=== PATIENT | male | born 1975 | race Caucasian/White ===

== ENCOUNTER 2021-08-03 02:06 | Inpatient (IN) | payer SELFPAY ==
[~2021-08-03] VITALS: Ht 185.4 cm; Wt 164.3 kg
--- NOTE | 2021-08-03 02:22 | PHYS DOC ---
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 Denies sudden back pain or abdominal pain. Baseline requires O2 at home however states that he ran out of O2 and albuterol several months ago and has not filled the prescriptions because he was planning to move out of [place] in September. Denies chest pain, palpitations, diaphoresis. No f/c/cough. Review of Systems: Review of Systems: Constitutional: Denies fever or chills. [] Eyes: Denies change in visual acuity. [] HENT: Denies nasal congestion or sore throat. [] Respiratory: Denies cough; + shortness of breath. [] Cardiovascular: Denies chest pain or edema. [] GI: Denies abdominal pain, nausea, vomiting, bloody stools or diarrhea. [] : Denies dysuria. [] Musculoskeletal: Denies back pain or joint pain. [] Integument: Denies rash. [] Neurologic: Denies headache, focal weakness or sensory changes. [] Endocrine: Denies polyuria or polydipsia. [] Lymphatic: Denies swollen glands. [] Psychiatric: Denies depression or anxiety. [] Heart Score: C/O Chest Pain: No Risk Factors: Risk Factors: DM, Current or recent (<one month) smoker, HTN, HLP, family history of CAD, obesity. Risk Scores: Score 0 - 3: 2.5% MACE over next 6 weeks - Discharge Home Score 4 - 6: 20.3% MACE over next 6 weeks - Admit for Clinical Observation Score 7 - 10: 72.7% MACE over next 6 weeks - Early Invasive Strategies Allergies: Allergies: Allergies Coded Allergies Type Severity Reaction Last Updated Verified No Known Drug Allergies 08/03/21 No Physical Exam: PE: Constitutional: Well developed, well nourished, no acute distress, non-toxic appearance. [] HENT: Normocephalic, atraumatic, bilateral external ears normal, oropharynx moist, no oral exudates, nose normal. [] Eyes: PERRLA, EOMI, conjunctiva normal, no discharge. [] Neck: Normal range of motion, no tenderness, supple, no stridor. [] Cardiovascular:Heart rate regular rhythm, no murmur [] Lungs & Thorax: +mild expiratory wheeze, no kermit crackles or ronchi Abdomen: Bowel sounds normal, soft, no tenderness, no masses, no pulsatile masses. [] Skin: Warm, dry, no erythema, +chronic erythematous diffuse rash. [] Back: No tenderness, no CVA tenderness. [] Extremities: No tenderness, no cyanosis, no clubbing, ROM intact, no edema. [] Neurologic: Alert and oriented X 3, normal motor function, normal sensory function, no focal deficits noted. [] Psychologic: Affect normal, judgement normal, mood normal. [] EKG: EKG: [] Radiology/Procedures: Radiology/Procedures: [] Course & Med Decision Making: Course & Med Decision Making Pertinent Labs and Imaging studies reviewed. (See chart for details) Additional Social History: PMD from non-affiliated facility. Patient Lives at home. Family History: Non-pertinent to today's complaint. Nursing Notes Reviewed Previous Medical Records requested via [facility] Web: Reviewed by me. EMERGENT LABS AND DIAGNOSTIC STUDIES: Results were reviewed and interpreted by me as below CBC: Shows no evidence of leukocytosis or anemia. Platelet count is normal Chemistry: Shows no electrolyte abnormalities Otherwise within normal limits, unremarkable or as noted above. 12-lead EKG Interpretation by Torsten Felix MD: Normal Sinus Rhythm at 90 beats per minute Normal axis Normal intervals No ectopy No PVC No other acute ST or T wave abnormalities Overall impression is normal EKG PROCEDURE: PORTABLE CHEST 1V Impression: Cardiomegaly. EMERGENCY DEPARTMENT COURSE/ MEDICAL DECISION MAKING: The patient was placed on a registered nurse cardiac, continuous pulse oximetry and was given supplemental oxygen. I examined the patient, evaluated and addressed patient's chief complaint. The patient was treated with DuoNeb, oxygen suspicious for CHF and COPD exac. Patient states he ran out of his O2 tank and albuterol months ago and never refilled them because he was planning to move out of [place] in September. r/o acs, pneumonia, pneumothorax. Lower suspicion for acute PE or dissection. After evaluation, I believe the patient is at risk for decompensation and will require admission. However, patients abnormal vital signs/labs are not consistent with sepsis, and the patient does not meet the criteria for sepsis at this time. I discussed the patient's case with Dr. Butler, who expressed understanding and agreed to admit the patient. I suspect the patient will be hospitalized for at least 2 midnights. DIAGNOSTIC IMPRESSION: 1. COPD exac 2. CHF exac DISPOSITION: Disposition: Admit to [facility] under the service of Dr. Butler Condition: Guarded Dragon Disclaimer: Dragon Disclaimer: This electronic medical record was generated, in whole or in part, using a voice recognition dictation system. Departure Departure Impression: Primary Impression: CHF exacerbation Additional Impressions: COPD exacerbation SOB (shortness of breath) Disposition: ADMITTED INPATIENT Condition: ISA CHAVEZ MD August 03, 2021 02:22
[2021-08-03 02:37] LABS: BARBITURATES NEG (NEG); BENZODIAZEPINES NEG (NEG); CANNABINOIDS NEG (NEG); COCAINE NEG (NEG); METHADONE NEG (NEG); OPIATES NEG (NEG); PHENCYCLIDINE NEG (NEG)
[2021-08-03 02:38] LABS: BACTERIA,URINE 0 /HPF (0-FEW); WBC,URINE OCC /HPF (0-4)
[2021-08-03 02:39] LABS: AMPHETAMINE/METHAMPHETAMINE NEG (NEG); HYALINE CASTS, URINE FEW /HPF
--- NOTE | 2021-08-03 02:43 | RAD ---
XR CHEST 1V Clinical History: Reason: sob / Spl. Instructions: / History: Technique: AP view of the chest was obtained at 08/03/2021 2:12 AM. Comparison: None. Findings: The heart is moderately enlarged. The pelvic vessels are top normal limits in size. There is an endog raft in the aorta. Impression: Cardiomegaly. Electronically signed by: Pablo Jorgensen III, MD (08/03/2021 2:41 AM) [facility]
[2021-08-03 02:52] LABS: BASO # 0.1 x10^3/uL (0.0-0.2); BASO % 1 % (0-3); EOS # 0.3 x10^3/uL (0.0-0.7); EOS % 3 % (0-3); HEMATOCRIT 52.1 % (39.0-53.0); HEMOGLOBIN 17.2 g/dL (13.0-17.5); LYMPH % 17 % (24-48); MEAN CORPUSCULAR HEMOGLOBIN 31 pg (25-35); MEAN CORPUSCULAR HGB CONC 33 g/dL (31-37); MEAN CORPUSCULAR VOLUME 95 fL (79-100); MONO # 0.9 x10^3/uL (0.0-1.1); MONO % 8 % (0-9); NEUT # 8.1 x10^3/uL (1.8-7.7); NEUT % 71 % (31-73); PLATELET COUNT 184 x10^3/uL (140-400); RED BLOOD COUNT 5.49 x10^6/uL (4.30-5.70); RED CELL DISTRIBUTION WIDTH 17.2 % (11.5-14.5); WHITE BLOOD COUNT 11.4 x10^3/uL (4.0-11.0)
[2021-08-03 03:13] LABS: CALCIUM 8.6 mg/dL (8.5-10.1); CREATININE 1.4 mg/dL (0.7-1.3); GFR 54.6; POTASSIUM 4.1 mmol/L (3.5-5.1)
[2021-08-03 03:17] LABS: PROTHROMBIN TIME PATIENT 12.7 SEC (11.7-14.0)
[2021-08-03 03:18] LABS: ALBUMIN 3.1 g/dL (3.4-5.0); ALBUMIN/GLOBULIN RATIO 0.9 (1.0-1.7); TOTAL BILIRUBIN 0.5 mg/dL (0.2-1.0); TOTAL PROTEIN 6.6 g/dL (6.4-8.2)
[2021-08-03] MEDS ORDERED: IPRATRPIUM/ALBUTEROL 0.5/2.5MG 3 ML NEBU. NEB ONE (03:30)
[2021-08-03] MEDS ORDERED: methylPREDNISolone SOD SUCC PF 125 MG/2 ML VIAL. IV ONE (03:30)
--- NOTE | 2021-08-03 03:47 | EKG ---
[facility] [address] [place] [address] Test Date: 2021-08-03 Test Time: 02:17:14 Pat Name: JOSEPHINE ANNE Department: Room: Gender: M Folder Tier: : 1975 Requested By: ISA RJOAS Order Number: [id number] Reading MD: Luigi Engel MD Measurements Intervals [place] Rate: 90 P: 38 ME: 158 QRS: -8 QRSD: 84 T: 62 QT: 360 QTc: 444 Interpretive Statements SINUS RHYTHM Electronically Signed On 08-03-2021 8:58:14 CDT by Luigi Engel MD
[2021-08-03 04:19] LABS: % BANDS 8 % (0-9); % EOS 4 % (0-5); % LYMPHS 10 % (24-48); % METAS 1 % (0-0); % MONOS 5 % (0-10); % SEGS 72 % (35-66); PLT ESTIMATE ADEQUATE (ADEQUATE)
[2021-08-03 04:20] LABS: ANISOCYTOSIS SLIGHT
[2021-08-03 04:30] VITALS: BP 139/72
[2021-08-03] MEDS ORDERED: xanax (04:55)
[2021-08-03] MEDS ORDERED: lexapro (04:55)
--- NOTE | 2021-08-03 05:13 | NUR ---
Admission Note: Pt admitted to room 664 from ED. Able to stand and walk a few steps to beds from ed cart. Pt on 3L NC. Poor historian, doesnt know all meds that he takes at home. Has been short of breath for a few days, heavy smoker. Denies using O2 at home. SR on monitor. Call light within reach.
[2021-08-03 07:00] VITALS: BP 150/68
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
[2021-08-03] MEDS ORDERED: guaiFENesin DM 200MG/20MG 10 ML SYRUP PO PRN (07:30)
[2021-08-03] MEDS ORDERED: ONDANSETRON PF 4 MG/2 ML VIAL. IVP PRN (07:30)
[2021-08-03] MEDS ORDERED: ENOXAPARIN 40 MG/0.4 ML SYRINGE. SQ SCH (07:30)
[2021-08-03] MEDS ORDERED: ACETAMINOPHEN 325 MG TABLET. PO PRN (07:30)
[2021-08-03] MEDS ORDERED: ALBUTEROL SULFATE 2.5 MG/3 ML NEBU. NEB PRN (07:30)
[2021-08-03] MEDS: IPRATRPIUM/ALBUTEROL 0.5/2.5MG 3 ML NEBU. NEB SCH ×4 (07:42→20:40)
[2021-08-03] MEDS: BUDESONIDE 0.5 MG/2 ML NEBU. NEB SCH ×2 (07:42→20:39)
[2021-08-03] MEDS: NICOTINE 21MG PATCH. TD PRN (08:15)
[2021-08-03] MEDS ORDERED: FUROSEMIDE 40 MG/4 ML VIAL. IVP ONE (10:00)
[2021-08-03] MEDS: CITALOPRAM 10 MG TABLET. PO SCH (10:25)
[2021-08-03] MEDS: CARVEDILOL 12.5 MG TABLET. PO SCH ×2 (10:26→16:33)
[2021-08-03 10:44] VITALS: BP 153/88
--- NOTE | 2021-08-03 13:25 | NUR ---
SS following for discharge planning. SS reviewed pt chart and discussed with pt RN. Pt is from home and is currently requiring oxygen at three liters nasal canula. Pt has no home oxygen. Pt is from [place] and works in [place]. Pt reporting that he would like to return to [place] at discharge. Self pay. [employer] following. SS will continue to follow for discharge planning.
[2021-08-03 14:59] VITALS: BP 154/84
[2021-08-03 19:12] VITALS: BP 148/83
[2021-08-03] MEDS ORDERED: ZOLPIDEM 5 MG TABLET. PO PRN (20:00)
[2021-08-03] MEDS: ENOXAPARIN 40 MG/0.4 ML SYRINGE. SQ SCH (20:49)
[2021-08-03] MEDS ORDERED: MONTELUKAST SODIUM 10 MG TABLET. PO SCH (21:00)
[2021-08-03 22:56] VITALS: BP 176/90
[2021-08-03] MEDS ORDERED: ZOLPIDEM 5 MG TABLET. PO ONE (23:00)
[2021-08-04 02:27] VITALS: BP 217/98
[2021-08-04] MEDS: hydrALAZINE 20 MG/ML VIAL. IVP PRN ×2 (02:46→07:36)
[2021-08-04 03:10] VITALS: BP 210/95
[2021-08-04 06:10] VITALS: BP 184/93
[2021-08-04 07:00] VITALS: BP 218/115
[2021-08-04] MEDS: BUDESONIDE 0.5 MG/2 ML NEBU. NEB SCH (07:30)
[2021-08-04] MEDS: IPRATRPIUM/ALBUTEROL 0.5/2.5MG 3 ML NEBU. NEB SCH ×2 (07:30→11:41)
[2021-08-04] MEDS: NICOTINE 21MG PATCH. TD PRN (07:34)
[2021-08-04] MEDS: CITALOPRAM 10 MG TABLET. PO SCH (07:35)
[2021-08-04] MEDS: ENOXAPARIN 40 MG/0.4 ML SYRINGE. SQ SCH (07:35)
[2021-08-04] MEDS ORDERED: CARVEDILOL 12.5 MG TABLET. PO SCH (08:00)
[2021-08-04] MEDS ORDERED: FUROSEMIDE 40 MG/4 ML VIAL. IVP ONE (08:00)
[2021-08-04 08:20] VITALS: BP 172/89
[2021-08-04 09:29] LABS: CALCIUM 9.6 mg/dL (8.5-10.1); CREATININE 1.3 mg/dL (0.7-1.3); GFR 59.4; POTASSIUM 4.7 mmol/L (3.5-5.1)
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
[2021-08-04] MEDS ORDERED: PROAIR RESPICL90 MCG IH ×2 (10:03→10:49)
[2021-08-04] MEDS ORDERED: HYDR100T24 PO (10:03)
[2021-08-04] MEDS ORDERED: ATOR40TA59 PO (10:03)
[2021-08-04] MEDS ORDERED: CARV25TA2 PO (10:03)
[2021-08-04] MEDS ORDERED: FAMO-63 PO (10:03)
[2021-08-04] MEDS ORDERED: MELA10TA7 PO (10:03)
[2021-08-04] MEDS ORDERED: DILT180C29 PO (10:03)
[2021-08-04] MEDS ORDERED: LOSA-73 PO (10:03)
[2021-08-04] MEDS ORDERED: ASPI-886 PO (10:03)
[2021-08-04] MEDS ORDERED: ALPR1TAB6 PO (10:03)
[2021-08-04] MEDS ORDERED: AMIT50TA PO (10:03)
[2021-08-04] MEDS ORDERED: GABA600T7 PO (10:03)
[2021-08-04] MEDS ORDERED: MONT10TA49 PO (10:49)
[2021-08-04 11:00] VITALS: BP 170/103
[2021-08-04] MEDS ORDERED: ASPIRIN ENTERIC COATED 81 MG TABLET.DR. PO SCH (11:00)
[2021-08-04] MEDS ORDERED: FAMOTIDINE 20 MG TABLET. PO SCH (11:00)
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
--- NOTE | 2021-08-04 12:14 | NUR ---
DISCHARGED PATIENT TO HOME. DISCHARGE INSTRUCTIONS GIVEN. PIV AND HEART MONITOR REMOVED. ESCORTED PATIENT OFF UNIT INTO A PRIVATE VEHICLE.
[2021-08-04] MEDS ORDERED: GABAPENTIN 300 MG CAPSULE. PO SCH (14:00)
[2021-08-04] MEDS ORDERED: AMITRIPTYLINE HCL 25 MG TABLET. PO SCH (21:00)
[2021-08-04] MEDS ORDERED: ATORVASTATIN CALCIUM 40 MG TABLET. PO SCH (21:00)
[2021-08-04] MEDS ORDERED: NON FORMULARY ITEM (Melatonin 1 TAB) PO SCH (21:00)
== END 2021-08-04 12:09 | disposition home or self-care (01) | DRG 189 ==
LOC: ER 02:06 → 6 SOUTH 03:23
PROVIDERS: ADMIT Internal Medicine; ATTEND Internal Medicine
DX: J96.01 Acute respiratory failure with hypoxia (principal); N17.0 Acute kidney failure with tubular necrosis; J44.1 Chronic obstructive pulmonary disease with (acute) exacerbation; I13.0 Hypertensive heart and chronic kidney disease with heart failure and stage 1 through stage 4 chronic kidney disease, or unspecified chronic kidney disease; I50.32 Chronic diastolic (congestive) heart failure; N17.9 Acute kidney failure, unspecified; B35.3 Tinea pedis; D72.829 Elevated white blood cell count, unspecified; E66.01 Morbid (severe) obesity due to excess calories; E78.5 Hyperlipidemia, unspecified; F17.210 Nicotine dependence, cigarettes, uncomplicated; F41.9 Anxiety disorder, unspecified; I25.10 Atherosclerotic heart disease of native coronary artery without angina pectoris; L30.9 Dermatitis, unspecified; N18.9 Chronic kidney disease, unspecified; T38.0X5A Adverse effect of glucocorticoids and synthetic analogues, initial encounter; Z20.822 Contact with and (suspected) exposure to COVID-19; Z79.82 Long term (current) use of aspirin; Z82.49 Family history of ischemic heart disease and other diseases of the circulatory system; F32.A Depression, unspecified
CPT/HCPCS: 36415; 71045; 80048; 80053; 80307; 81001; 83880; 84484; 85007; 85025; 85610; 87426; 93005; 94618; 94640; 94760; 96374; J0360; J1650; J1940; J2930; 99285-25; G0378; J7613; J7626